=== PATIENT | female | born 1960 | race Caucasian/White ===

== ENCOUNTER → 2017-01-30 | Outpatient (CLI) | payer BC ==
--- NOTE | 2017-01-30 11:56 | KCIC ---
DATE: 01/30/2017 EXAM: MAMMO RENEE SCREENING BILATERAL HISTORY: Screening COMPARISON: 08/18/2015 FINDINGS: Breast Density: SCATTERED The breast parenchyma shows scattered fibroglandular densities. Breast parenchyma level B. There has not been a significant change in the appearance of the breasts compared to the previous exam IMPRESSION: Benign findings BI-RADS CATEGORY: 2 BENIGN FINDING(S) RECOMMENDED FOLLOW-UP: 12M 12 MONTH FOLLOW-UP PQRS compliance statement: Patient information was entered into a reminder system with a target due date 01/30/2018 for the next mammogram. Mammography is a sensitive method for finding small breast cancers, but it does not detect them all and is not a substitute for careful clinical examination. A negative mammogram does not negate a clinically suspicious finding and should not result in delay in biopsying a clinically suspicious abnormality. "Our facility is accredited by the [employer] Mammography Program."
== END | disposition home or self-care (01) ==
LOC: KCIC MAMMO 09:18
PROVIDERS: ATTEND Internal Medicine
DX: Z12.31 Encounter for screening mammogram for malignant neoplasm of breast (principal)
CPT/HCPCS: 77063; G0202; 77067

== ENCOUNTER 2017-06-30 09:21 | Emergency (ER) | payer BC ==
[2017-06-30] MEDS ORDERED: NITROGLYCERIN SUBLINGUAL 0.4 MG BOTTLE OF 25. SL ×2 (09:30)
[2017-06-30 09:37] LABS: ADD MAN DIFF? NO
[2017-06-30 09:40] LABS: BASO % 1 % (0-3); EOS # 0.1 x10^3/uL (0.0-0.7); EOS % 2 % (0-3); LYMPH # 2.2 x10^3/uL (1.0-4.8); LYMPH % 32 % (24-48); MEAN CORPUSCULAR HEMOGLOBIN 29 pg (25-35); MEAN CORPUSCULAR HGB CONC 33 g/dL (31-37); MEAN CORPUSCULAR VOLUME 87 fL (79-100); MONO # 0.5 x10^3/uL (0.0-1.1); MONO % 8 % (0-9); NEUT # 3.9 x10^3uL (1.8-7.7); NEUT % 58 % (31-73); PLATELET COUNT 234 x10^3/uL (140-400); RED BLOOD COUNT 4.48 x10^6/uL (3.50-5.40); WHITE BLOOD COUNT 6.8 x10^3/uL (4.0-11.0)
[2017-06-30 09:49] LABS: INR 1.1 (0.8-1.1); PROTHROMBIN TIME PATIENT 13.1 SEC (11.7-14.0)
[2017-06-30 09:55] LABS: ANION GAP 6 (6-14); BLOOD UREA NITROGEN 19 mg/dL (7-20); CALCIUM 10.1 mg/dL (8.5-10.1); CARBON DIOXIDE 28 mmol/L (21-32); CHLORIDE 104 mmol/L (98-107); CREATININE 0.7 mg/dL (0.6-1.0); GFR 85.9; GLUCOSE 120 mg/dL (70-99); SODIUM 138 mmol/L (136-145)
[2017-06-30 10:02] LABS: ALBUMIN 3.8 g/dL (3.4-5.0); ALK PHOS 103 U/L (46-116); ALT (SGPT) 23 U/L (14-59); AST (SGOT) 15 U/L (15-37); DIRECT BILIRUBIN 0.1 mg/dL (0.0-0.2); LIPASE 97 U/L (73-393); MAGNESIUM 2.1 mg/dL (1.8-2.4); TOTAL BILIRUBIN 0.3 mg/dL (0.2-1.0); TOTAL PROTEIN 7.4 g/dL (6.4-8.2)
[2017-06-30 10:06] LABS: CKMB MASS 0.8 ng/mL (0.0-3.6); CREATINE KINASE 54 U/L (26-192)
[2017-06-30 10:06] LABS: NT-PRO BNP 5 pg/mL (0-124)
[2017-06-30 10:07] LABS: TROPONINI < 0.017 ng/mL (0.000-0.055)
[2017-06-30 11:14] LABS: BILIRUBIN,URINE NEGATIVE (NEG); CLARITY,URINE CLOUDY; COLOR,URINE YELLOW; GLUCOSE,URINE NEGATIVE (NEG); NITRITE,URINE NEGATIVE (NEG); PH,URINE 7.5; PROTEIN,URINE NEGATIVE (NEG-TRACE); UROBILINOGEN,URINE 0.2 mg/dL (0.2 mg/dL)
[2017-06-30 11:20] LABS: SQUAMOUS EPITHELIAL CELL,UR FEW /LPF
[2017-06-30 11:21] LABS: BARBITURATES NEG (NEG); BENZODIAZEPINES NEG (NEG); CANNABINOIDS NEG (NEG); COCAINE NEG (NEG); METHADONE NEG (NEG); OPIATES NEG (NEG); PHENCYCLIDINE NEG (NEG)
[2017-06-30 11:22] LABS: AMPHETAMINE/METHAMPHETAMINE NEG (NEG); ETHANOL, URINE NEG (NEG)
[2017-06-30 11:26] LABS: AMORPHOUS SEDIMENT,UR PRESENT /HPF
[2017-06-30 11:32] LABS: BACTERIA,URINE FEW /HPF (0-FEW)
[2017-06-30 13:28] LABS: CKMB MASS 0.7 ng/mL (0.0-3.6); CREATINE KINASE 47 U/L (26-192)
[2017-06-30 13:30] LABS: TROPONINI < 0.017 ng/mL (0.000-0.055)
== END 2017-06-30 14:11 | disposition home or self-care (01) ==
LOC: ER 09:21
DX: R10.13 Epigastric pain (principal); R61 Generalized hyperhidrosis; G89.29 Other chronic pain; Z79.82 Long term (current) use of aspirin
CPT/HCPCS: 36415; 71045; 80048; 80076; 80307; 81001; 82553; 83690; 83735; 83880; 84484; 85025; 85610; 87086; 93005; 99285-25